=== PATIENT | male | born 1945 | race Caucasian/White ===

== ENCOUNTER 2021-01-03 08:01 | Day surgery (SDC) | payer OTHER ==
[2020-12-28 10:07] VITALS: BMI 28.8
[2021-01-03 08:42] VITALS: TEMP 98.2
[2021-01-03 11:23] VITALS: BP 116/56; PULSE 58
== END 2021-01-03 11:00 | disposition home or self-care (01) ==
LOC: FASU-ENDO 08:01
PROVIDERS: ATTEND Internal Medicine Gastroenterology
PROC: 0DB68ZX Excision of Stomach, Via Natural or Artificial Opening Endoscopic, Diagnostic (ICD-10-PCS; 2021-01-03)
PROC: 0DB48ZX Excision of Esophagogastric Junction, Via Natural or Artificial Opening Endoscopic, Diagnostic (ICD-10-PCS; 2021-01-03)
PROC: 0DB98ZX Excision of Duodenum, Via Natural or Artificial Opening Endoscopic, Diagnostic (ICD-10-PCS; principal; 2021-01-03 09:37)
DX: K29.50 Unspecified chronic gastritis without bleeding (principal); K21.00 Gastro-esophageal reflux disease with esophagitis, without bleeding; R10.13 Epigastric pain
CPT/HCPCS: 88305-TC; 88342-TC

== ENCOUNTER 2023-10-07 07:41 | Day surgery (SDC) | payer OTHER ==
[2023-09-30 15:34] VITALS: BMI 27.4
[2023-10-07 09:33] VITALS: TEMP 97.3
[2023-10-07 09:34] VITALS: BP 129/68; PULSE 54; RESP 18
== END 2023-10-07 10:00 | disposition home or self-care (01) ==
LOC: FASU-ENDO 07:41
PROVIDERS: ATTEND Internal Medicine Gastroenterology
PROC: 0DBL8ZX Excision of Transverse Colon, Via Natural or Artificial Opening Endoscopic, Diagnostic (ICD-10-PCS; principal; 2023-10-07 08:41)
DX: Z12.11 Encounter for screening for malignant neoplasm of colon (principal); D12.3 Benign neoplasm of transverse colon
CPT/HCPCS: 88305-TC